=== PATIENT | female | born 1985 | race American Indian/Alaskan Native ===

== ENCOUNTER 2021-08-30 13:57 | Emergency (ER) | payer OTHER | END 2021-08-30 14:01 | LOC: JVIRT 13:57 | DX: J06.9 Acute upper respiratory infection, unspecified (principal); Z20.822 Contact with and (suspected) exposure to COVID-19 | CPT/HCPCS: C9803-CS; Q3014-GT; U0003; U0005 ==

== ENCOUNTER 2021-09-05 20:03 | Emergency (ER) | payer OTHER ==
[2021-09-05 20:13] VITALS: BP 139/85; PULSE 118; TEMP 102.5; BMI 26.4
[2021-09-05 20:35] LABS: HCG,QUALITATIVE URINE Negative
[2021-09-05 20:54] LABS: ALBUMIN 4.1 g/dl (3.4-5.0); BILIRUBIN,TOTAL 0.7 mg/dl (0.2-1); CALCIUM 8.7 mg/dl (8.5-10); CREATININE 0.6 mg/dl (0.55-1.3); TOT PROT 7.6 g/dl (6.4-8.2)
[2021-09-05 21:53] LABS: BASO % 0.2 % (0-2.0); EOS % 0.2 % (0-4.5); HEMATOCRIT 39.1 % (32.4-45.2); HEMOGLOBIN 13.2 GM/dL (10.7-15.3); LYMPH % 16.5 % (8-40); MCH 28.1 pg (25.7-33.7); MCHC 33.8 g/dl (32.0-36.0); MEAN CELL VOLUME 83.2 fl (80-96); MEAN PLT VOLUME 8.8 fl (7.5-11.1); MONO % 8.2 % (3.8-10.2); NEUT % 74.9 % (42.8-82.8); PLATELET COUNT 184 10^3/uL (134-434); RDW 13.1 % (11.6-15.6); WHITE BLOOD COUNT 4.8 K/mm3 (4.0-10.0)
[2021-09-05] MEDS ORDERED: ACETAMINOPHEN 1000 MG/100 ML BAG IVPB ONE (22:57)
[2021-09-05] MEDS ORDERED: ONDANSETRON 4 MG/2 ML VIAL IVPUSH ONE (22:57)
[2021-09-05] MEDS ORDERED: ACETAMINOPHEN INJECTION 100 ML IVPB ONE (23:16)
[2021-09-05] MEDS ORDERED: ONDANSETRON 4 MG/2 ML VIAL ONE (23:16)
[2021-09-06] MEDS ORDERED: CEPHALEXIN MONOHYDRATE 500 MG CAPSULE (UD) PO ONE (00:17)
[2021-09-06] MEDS ORDERED: CEPHALEXIN MONOHYDRATE 500 MG CAPSULE (UD) ONE (00:20)
== END 2021-09-06 00:35 | disposition home or self-care (01) ==
LOC: FER 20:03
PROC: 3E0333Z Introduction of Anti-inflammatory into Peripheral Vein, Percutaneous Approach (ICD-10-PCS; principal; 2021-09-05)
PROC: 3E033GC Introduction of Other Therapeutic Substance into Peripheral Vein, Percutaneous Approach (ICD-10-PCS; 2021-09-05)
DX: U07.1 COVID-19 (principal)
CPT/HCPCS: 36415; 71045-TC-FY; 80053; 81003; 81015; 84703; 85025; 87086; 99284-25; J0131